=== PATIENT | male | born 1955 | race Caucasian/White ===

== ENCOUNTER 2024-07-25 06:59 | Emergency (ER) | payer BC, MEDICARE | END 2024-07-25 08:00 | disposition home or self-care (01) | LOC: DL.ED 06:59 | DX: S01.81XA Laceration without foreign body of other part of head, initial encounter (principal); W00.9XXA Unspecified fall due to ice and snow, initial encounter; Y93.89 Activity, other specified | CPT/HCPCS: 12011; 70450; 99283 ==